=== PATIENT | female | born 1985 | race Caucasian/White ===

== ENCOUNTER 2024-03-03 10:11 | Outpatient (CLI) | payer OTHER, SELFPAY ==
--- NOTE | 2024-03-03 10:47 | ECG_ITS ---
SEE SCANNED COPY FOR CONFIRMED REPORT MTDD
== END 2024-03-03 10:12 | disposition home or self-care (01) ==
PROVIDERS: Visit Provider Obstetrics & Gynecology
DX: Z01.818 Encounter for other preprocedural examination (principal); N93.9 Abnormal uterine and vaginal bleeding, unspecified
CPT/HCPCS: 36415; 86850; 86900; 86901; 93005

== ENCOUNTER 2024-03-16 00:41 | Day surgery (SDC) | payer OTHER, SELFPAY ==
[2024-03-01 11:33] VITALS: BMI 36.1
--- NOTE | 2024-03-01 11:42 | PC.NURSE ---
Report to the Outpatient Waiting Room, entrance under the green pavilion located off [facility], at time _0600_ on date _[id number]_. Planned Procedure Time: _0730_. Time changes happen often and if your time is changed the preop area will call you the afternoon before. - You and your visitor will be asked to self-screen and do not enter if you have any COVID symptoms. - A mask is optional within the hospital at this time. Patients may have clear liquids (water, carbonated beverages, clear teas, apple juice) until 3 hours prior to surgery with a maximum of 20 ounces. - No food from midnight until time of surgery Take the following medications with a SIP of water the morning of surgery: ___None DO NOT STOP ANY OF YOUR OTHER PRESCRIPTION MEDICATIONS PRIOR TO SURGERY ?EXCEPT THE FOLLOWING Medications to discontinue per physician ____None Date to take last dose Please no make-up, nail south african, hairspray, perfume, deodorant, or body powder the day of surgery. No jewelry (including any body piercings) or valuables the day of surgery, leave them at home. Please take a shower or bath the night before, or the morning of, surgery with an antibacterial soap. Wear comfortable, loose fitting clothing. - Jewelry must be removed prior to entering the operating room. Rings and piercings that are not removed may be cut off. - The hospital will not accept responsibility for valuables. - Please leave all valuables, including medications, at home the day of surgery. If you are going home after surgery, a licensed public transit trolley driver must drive you home. - NO public transportation without another adult if you receive anesthesia. - We recommend that an adult stay with you for 24 hours following discharge. - We also recommend that you do not drive, make important decision, drink alcoholic beverages, or take any drugs that were not prescribed by your health care provider for at least 24 hours after your discharge time. Follow any additional instructions given to you from your surgeon. If you or anyone in your household have experienced Covid symptoms in the past week, please notify your surgeon or the nurse liaison at the phone number below for possible testing. Telephone instructions given to __Crystal__and asked if any additional questions and then verbalized understanding. Patient advised to call surgeon office or pre surgery nurse liaison [phone] if any additional questions.
--- NOTE | 2024-03-14 10:51 | PC.NURSE ---
Report to the Outpatient Waiting Room, entrance under the green pavilion located off [facility], at time _0930_ on date _[id number]_. Planned Procedure Time: _1130_. Time changes happen often and if your time is changed the preop area will call you the afternoon before. - You and your visitor will be asked to self-screen and do not enter if you have any COVID symptoms. - A mask is optional within the hospital at this time. Patients may have clear liquids (water, carbonated beverages, clear teas, apple juice) until 3 hours prior to surgery with a maximum of 20 ounces. - No food from midnight until time of surgery Take the following medications with a SIP of water the morning of surgery: None DO NOT STOP ANY OF YOUR OTHER PRESCRIPTION MEDICATIONS PRIOR TO SURGERY ?EXCEPT THE FOLLOWING Medications to discontinue per physician None Date to take last dose Please no make-up, nail nepali, hairspray, perfume, deodorant, or body powder the day of surgery. No jewelry (including any body piercings) or valuables the day of surgery, leave them at home. Please take a shower or bath the night before, or the morning of, surgery with an antibacterial soap. Wear comfortable, loose fitting clothing. - Jewelry must be removed prior to entering the operating room. Rings and piercings that are not removed may be cut off. - The hospital will not accept responsibility for valuables. - Please leave all valuables, including medications, at home the day of surgery. If you are going home after surgery, a licensed hearse driver must drive you home. - NO public transportation without another adult if you receive anesthesia. - We recommend that an adult stay with you for 24 hours following discharge. - We also recommend that you do not drive, make important decision, drink alcoholic beverages, or take any drugs that were not prescribed by your health care provider for at least 24 hours after your discharge time. Follow any additional instructions given to you from your surgeon. If you or anyone in your household have experienced Covid symptoms in the past week, please notify your surgeon or the nurse liaison at the phone number below for possible testing. Telephone instructions given to __Crystal__and asked if any additional questions and then verbalized understanding. Patient advised to call surgeon office or pre surgery nurse liaison [phone] if any additional questions.
[2024-03-16] VITALS (11 sets, daily range): BP systolic 105–135; BP diastolic 60–92; PULSE 64–85; RESP 10–18; TEMP 35.9–36.7; O2SAT 95–100
--- NOTE | 2024-03-16 09:54 | P.PNAN_ITS ---
Anes - Initial Pre Proc Eval Procedure: Operation Date: 03/16/24 11:30 Proposed Procedures p Total Laparoscopic Hysterectomy with Bilateral Salpingectomy - Nitesh Al MD Date/Time: 03/16/24 09:54 Surgeon: Nitesh Al MD Pre Op Diagnosis: Abnormal Uterine Bleeding Patient Data Age: 38 Gender: F Height: 1.7 m Weight: 104.5 kg Allergies Allergy/AdvReac Type Severity Reaction Status Date / Time No Known Allergies Allergy Verified 03/13/24 11:26 Home Medications Medication Instructions Recorded Confirmed Type atorvastatin 20 mg tablet 20 mg PO DAILY 03/01/24 03/13/24 History estradiol 1 mg tablet 1 mg PO DAILY 03/01/24 03/13/24 History progesterone micronized 100 mg 100 mg PO DAILY 03/01/24 03/13/24 History capsule Patient hx anesthesia problems: none Family hx anesthesia problems: none Results Review: All pre-operative results and documents have been reviewed as part of the pre- operative evaluation. PMFSH Social History Social History Smoking status: Never smoker Living arrangements: with family Spiritual care concerns: No Anes - Eval Final PreProcedure Day of Procedure 03/16/24 09:54 Patient weight: obese Heart: regular rate and rhythm Lungs: clear to auscultation Airway: Mallampati scale class II Neurological: alert and oriented Last oral intake: >/= 8 hours ASA classification: III Emergent: no Anesthetic plan: proceed Anesthesia type and monitoring: general ETT and standard monitoring Results Review: All pre-operative results and documents have been reviewed as part of the pre- operative evaluation. Informed Consent: The patient's anesthetic plan and its attendant risks and benefits were discussed with the patient/family/POA. Questions were solicited and answers provided to the satisfaction of the patient/family/POA.
--- NOTE | 2024-03-16 09:58 | PM.IMHP ---
H&P: HPI History of Present Illness Date/Time: 03/16/24 09:58 Chief Complaint: abnormal uterine bleeding Narrative: Patient is a 38 year old female who presents for total laparoscopic hysterectomy, bilateral salpingectomy, and cystoscopy, indicated for abnormal uterine bleeding. She has tried multiple medical management options in the past, and then underwent endometrial ablation in 2018. She was amenorrheic until late 2022 when she began to have heavy bleeding again. Pelvic ultrasound and EMB in the office demonstrated regrowth of normal endometrium. Discussed r/b/a of expectant vs medical vs surgical management of bleeding. Patient desires definitive surgical management with hysterectomy. Hx of lap RSO previously. Review of Systems Review of Systems: All systems reviewed & are unremarkable except as noted in HPI and below PMFSH Social History Social History Smoking status: Never smoker Living arrangements: with family Spiritual care concerns: No Meds Home Medications and Allergies Home Medications Medication Instructions Recorded Confirmed Type atorvastatin 20 mg tablet 20 mg PO DAILY 03/01/24 03/16/24 History estradiol 1 mg tablet 1 mg PO DAILY 03/01/24 03/16/24 History progesterone micronized 100 mg 100 mg PO DAILY 03/01/24 03/16/24 History capsule Allergies Allergy/AdvReac Type Severity Reaction Status Date / Time No Known Allergies Allergy Verified 03/16/24 11:20 Exam Const: General: comfortable and no acute distress Eyes: General: appearance normal, both eyes and all related structures Resp: Effort & Inspection: normal respiratory effort Cardio: Rate: regular rate Rhythm: regular rhythm GI: Inspection: non-distended : General: Yes bladder normal to palpation Skin: General skin exam: normal color Extrem: General: normal to inspection Psych: Mental Status: mental status grossly normal Assessment and Plan Assessment and plan (1) Abnormal uterine bleeding (AUB): Code(s): N93.9 - Abnormal uterine and vaginal bleeding, unspecified Status: Acute Assessment and Plan: - hx of heavy periods - amenorrheic following endometrial ablation in 2018, however began bleeding again in 2022 - pelvic US and EMB demonstrate normal endometrium - discussed expectant vs medical vs surgical management and r/b of each; patient desires definitive surgical management with hysterectomy - Discussed total laparoscopic hysterectomy with left salpingectomy and cystoscopy; RSO previously performed. Discussed left ovarian conservation as long as normal appearing - Patient voices understanding and would like to proceed as scheduled
[2024-03-16] MEDS: LACTATED RINGERS 1,000 ML 30 ML IV CONT ×2 (10:00→14:52)
[2024-03-16] MEDS: ACETAMINOPHEN 500 MG TABLET 1000 MG PO (11:35)
[2024-03-16] MEDS: KETOROLAC 15 MG/ML VIAL (*BKC) IV PUSH (11:35)
--- NOTE | 2024-03-16 12:00 | WPDHPUPDATE1 ---
History and Physical Update Update Date/Time: 03/16/24 12:00 History and Physical has been reviewed, including an updated exam of the patient. There are NO changes in the patient's condition. Risks, benefits, and alternatives have been discussed and questions answered. Patient agrees to proceed with procedure.
[2024-03-16] MEDS: ceFAZolin 2 GM/D5W 50 ML 2 GM/50 ML BAG IVPB (12:16)
[2024-03-16] MEDS: BUPIVACAINE/EPINEPHRINE 0.5% 10 ML VIAL 20 ML INFILTRATE (13:03)
[2024-03-16] MEDS: fentaNYL CITRATE INJ (*CRX) 100 MCG/2 ML VIAL 25 MCG IV PUSH ×4 (15:44→16:08)
--- NOTE | 2024-03-16 16:35 | PC.NURSE ---
This patient, Zandra Freitas, was received from PACU via bed on 03/16/24 at 1635. Patient/family oriented to unit policies and routines.
[2024-03-16] MEDS: ONDANSETRON INJ 4 MG/2 ML VIAL IV PUSH (17:28)
[2024-03-16] MEDS: IBUPROFEN 600 MG TABLET PO (18:25)
[2024-03-16] MEDS: ACETAMINOPHEN 325 MG TABLET 650 MG PO ×2 (18:25→19:03)
[2024-03-16] MEDS: HYDROcodone/acetaminophen (*CRX) 7.5-325 MG TABLET 1 TAB PO (19:03)
[2024-03-16] MEDS: LACTATED RINGERS 1,000 ML 125 ML IV CONT (19:04)
[2024-03-16] MEDS: HYDROmorphone HCL INJ (*CRX) 1 MG/ML SYR IV PUSH ×2 (19:38→21:55)
--- NOTE | 2024-03-16 21:03 | W.PM.PROC2 ---
Procedure Note - Detailed Date of Procedure 03/16/24 Pre-op Diagnosis Abnormal Uterine Bleeding Post-op Diagnosis Same Procedure Performed Total laparoscopic hysterectomy with cystoscopy Surgeon Nitesh Al MD Anesthesia General and Local Indications abnormal uterine bleeding s/p endometrial ablation Findings Surgically absent right ovary and bilateral fallopian tubes. Normal appearing left ovary. Small and large bowel adhered from the posterior cul de sac to the fundus. Description of Procedure The patient was taken to the operating room with IV fluids infusing and placed in dorsal supine position. She was given general anesthesia by the anesthesiologist without difficulty. She was then repositioned in the dorsal lithotomy position and prepped and draped in the usual sterile manner. A Rivera catheter was placed in the patient's bladder. The Juli uterine manipulator was place in the cervix. Legs were returned to physiologic position. An oral gastric tube was placed in the stomach to suction any contents. A small incision was made in the abdomen in the mid clavicular line below the left costal margin. A 5mm trocar was placed into Broussard's point under direct vision. Intraabdominal placement was confirmed with an opening pressure of 6mm. After adequate visualization two 5 mm ports were placed lateral to the inferior epigastric vessels on the left. The [place] Ligasure was used throughout the case. On evaluation of the pelvis, a large amount of dense bowel adhesions were noted extending from the fundus to the posterior cul de sac that significantly distorted the anatomy. A mixture of both Ligasure and cold scissors were used to carefully separate the the bowel from the posterior aspect of the uterus. 75 minutes were spent on adhesiolysis in order to visualize the cervical cup of the manipulator. A rectal exam was performed to ensure no entry into the rectum during adhesioloysis, and it was intact at the end of adhesiolysis. Once the anatomy was normalized as much as possible, the hysterectomy was begun by coagulating and cutting the uteroovarian pedicle on the left and the round ligaments. The bladder flap was created the bladder from the lower uterine segment.The uterine vessels were skeletonized bilaterally,coagulated and then cut. The Ligasure L hook was used to create the colpotomy anteriorly and continued around the circumference of the cervix. The uterus was delivered vaginally. The pedicles were noted to be hemostatic. After adequate hemostasis the vaginal cuff was closed with V-loc suture in a running fashion. Surgicel powder was placed under the sigmoid and along the vaginal cuff. Cystoscopy was performed. Both ureters showed normal flow and there was no damage to the bladder. The abdominal cavity was lavaged with normal saline; there was no active bleeding. Instruments were removed under direct vision and as much CO2 was removed as possible. The abdomen was washed and the incision sites were closed with 4-0 Biosyn and injected with Marcaine. The incisions were covered with skin glue. Patient tolerated the procedure well. Sponge, lap, needle, and instrument counts were correct. Patient was awakened and taken to the PACU in stable condition by the anesthesiologist. A modifier 22 is to be added due to the difficulty of adhesiolysis with was unusually complex and time consuming for a standard hysterectomy. Estimated Blood Loss 100 Pathology Yes Complications No immediate complications Condition Stable Disposition Floor
[2024-03-17] MEDS: LACTATED RINGERS 1,000 ML 125 ML IV CONT ×2 (01:00→09:30)
[2024-03-17] MEDS: HYDROmorphone HCL INJ (*CRX) 1 MG/ML SYR IV PUSH (02:21)
[2024-03-17 05:00] VITALS: BP 99/54; PULSE 81; RESP 16; TEMP 36.4; O2SAT 96
[2024-03-17 05:40] LABS: Hematocrit 29.4 % (37.0-47.0); Hemoglobin 9.2 g/dL (12.0-15.0); Mean Corpuscular HGB Conc 31.3 g/dl (32-36); Mean Corpuscular Hemoglobin 32.3 pg (26-34); Mean Corpuscular Volume 103.2 fl (80-100); Mean Platelet Volume 10.2 fl (7.4-10.4); Platelet Count Result 217 k/mm3 (150-375); Red Blood Count 2.85 M/mm3 (4.2-5.4); Red Cell Distribution Width 12.5 % (11.5-14.5); White Blood Count 9.9 K/mm3 (4.5-10.0)
[2024-03-17 05:46] LABS: Anion Gap 3 mmol/L (4-12); Blood Urea Nitrogen 14 mg/dL (7-17); Calcium 7.9 mg/dL (8.4-10.2); Carbon Dioxide 25 mmol/L (22-30); Chloride 105 mmol/L (98-107); Estimated CRCL calculation 103 ml/min; Estimated Glomerular Filt Rate > 60; Glucose 123 mg/dL (65-110); Potassium 4.8 mmol/L (3.4-5.0); Sodium 133 mmol/L (137-145)
[2024-03-17 09:05] VITALS: BP 98/58; PULSE 93; RESP 18; TEMP 36.2; O2SAT 98
[2024-03-17] MEDS: polyethylene glycoL 3350 17 GM POWD.PACK PO (09:30)
[2024-03-17] MEDS: estradioL 1 MG TABLET PO (09:30)
[2024-03-17] MEDS: ACETAMINOPHEN 325 MG TABLET 650 MG PO (09:30)
[2024-03-17] MEDS: ENOXAPARIN 40 MG/0.4 ML SYRINGE SUB-Q (09:31)
[2024-03-17] MEDS: IBUPROFEN 600 MG TABLET PO (10:45)
[2024-03-17] MEDS: SIMETHICONE 80 MG TAB.CHEW PO (10:45)
--- NOTE | 2024-03-17 13:03 | PM.GYNPNOP ---
MOTOR VEHICLE CLERK - A/P Postoperative Procedures: Procedures Operation Date: 03/16/24 11:30 Actual Procedure Side Surgeon p Total Laparoscopic Hysterectomy with Bilateral Salpingectomy Not Applicable Nitesh Al MD s Cystoscopy for MOTOR VEHICLE CLERK Procedure Not Applicable Nitesh Al MD Time Spent With Patient Time: Total time spent is greater than 50% in coordination of care (as documented) at patient's floor/unit and/or counseling patient: Time with patient: 15 - 25 minutes MOTOR VEHICLE CLERK- PN:Subj Post-Op Subjective Date/time seen: 03/17/24 13:03 Interval history: POD#1 s/p TLH Pain improving, lots of gas pain Tolerating clear liquids catheter in place, to be removed this morning discussed difficulty of case with bowel adhesions, easy diet for the first few days Review of Systems Review of Systems: All systems reviewed & are unremarkable except as noted in HPI and below Exam Const: General: comfortable and no acute distress Eyes: General: appearance normal, both eyes and all related structures Resp: Effort & Inspection: normal respiratory effort Cardio: Rate: regular rate Rhythm: regular rhythm GI: Inspection: non-distended Other: incisions c/d/i with glue, appropriately tender Skin: General skin exam: normal color Extrem: General: normal to inspection Psych: Mental Status: mental status grossly normal MOTOR VEHICLE CLERK - PN: Obj Data Vital Signs Vital Signs: Vital Signs - 24 hr 03/16/24 14:52 03/16/24 15:20 03/16/24 15:05 Temperature 97.7 F Pulse Rate 65 75 69 Respiratory Rate 10 L 18 10 L Blood Pressure 105/60 119/89 113/68 Pulse Oximetry 100 100 100 Oxygen Delivery Simple Face Mask Simple Face Mask Simple Face Mask Oxygen Flow Rate 6 6 6 03/16/24 15:35 03/16/24 16:20 03/16/24 16:29 Temperature Pulse Rate 66 67 69 Respiratory Rate 16 12 12 Blood Pressure 130/83 116/78 117/77 Pulse Oximetry 100 96 97 Oxygen Delivery Simple Face Mask Room Air Room Air Oxygen Flow Rate 6 03/16/24 15:50 03/16/24 16:05 03/16/24 16:40 Temperature 97.7 F Pulse Rate 64 71 85 Respiratory Rate 14 14 18 Blood Pressure 134/85 114/80 109/71 Pulse Oximetry 100 99 95 Oxygen Delivery Room Air Room Air Oxygen Flow Rate 03/16/24 19:20 03/16/24 19:20 03/16/24 19:20 Temperature 96.7 F L 96.7 F L Pulse Rate 77 77 77 Respiratory Rate 14 14 14 Blood Pressure 112/69 112/69 Pulse Oximetry 100 100 100 Oxygen Delivery Room Air Oxygen Flow Rate 03/17/24 05:00 03/17/24 05:00 03/17/24 09:05 Temperature 97.5 F L 97.1 F L Pulse Rate 81 81 93 Respiratory Rate 16 16 18 Blood Pressure 99/54 L 98/58 L Pulse Oximetry 96 96 98 Oxygen Delivery Room Air Oxygen Flow Rate Intake/Output Intake/Output: Intake & Output 03/14/24 03/15/24 03/16/24 03/17/24 23:59 23:59 23:59 23:59 Intake Total 650 3300 Output Total 925 925 Balance -275 2375 Meds/Results Medications: Active Medications Generic Name Dose Route Start Last Admin Trade Name Freq PRN Reason Stop Dose Admin Acetaminophen 650 mg 03/16/24 18:00 03/17/24 09:30 Acetaminophen 325 Mg Tablet PO 650 mg Q6HR CHERYLE Administration Hydrocodone Bitart/Acetaminophen 1 tab 03/16/24 15:23 03/16/24 19:03 Hydrocodone/Acetaminophen (*Crx) 7.5-325 Mg Tablet PO 1 tab Q4H PRN Administration Pain Rated 7-10 Hydrocodone Bitart/Acetaminophen 1 tab 03/16/24 15:23 Hydrocodone/Acetaminophen (*Crx) 5-325 Mg Tablet PO Q4H PRN Pain Rated 4-6 Atorvastatin Calcium 20 mg 03/17/24 09:00 03/17/24 11:36 Atorvastatin 20 Mg Tablet PO Not Given DAILY CHERYLE Diphenhydramine HCl 25 mg 03/16/24 15:23 Diphenhydramine Hcl Inj 50 Mg/Ml Vial IV PUSH Q6H PRN Itching Enoxaparin Sodium 40 mg 03/17/24 09:00 03/17/24 09:31 Enoxaparin 40 Mg/0.4 Ml Syringe SUB-Q 40 mg DAILY CHERYLE Administration Estradiol 1 mg 03/17/24 09:00 03/17/24 09:30 Estradiol 1 Mg Tablet PO 1 mg DAILY CHERYLE Administrati
== END 2024-03-17 14:10 | disposition home or self-care (01) ==
LOC: ANHSURGERY 09:23 → ANHOB2 17:15
PROVIDERS: Visit Provider Obstetrics & Gynecology
PROC: 0UT9FZZ Resection of Uterus, Via Natural or Artificial Opening With Percutaneous Endoscopic Assistance (ICD-10-PCS; CPT 58571; principal; 2024-03-16 11:30)
PROC: 0TJB8ZZ Inspection of Bladder, Via Natural or Artificial Opening Endoscopic (ICD-10-PCS; CPT 52000; 2024-03-16 11:30)
DX: N93.9 Abnormal uterine and vaginal bleeding, unspecified (principal); N73.6 Female pelvic peritoneal adhesions (postinfective); N85.8 Other specified noninflammatory disorders of uterus; E66.9 Obesity, unspecified; Z68.36 Body mass index [BMI] 36.0-36.9, adult
CPT/HCPCS: 58571; 36415; 80048; 85027; 86850; 86900; 86901; 88307; 93005; 99199; A9270; J0330; J0690; J1100; J1170; J1650; J1885; J2250; J2405; J2704; J3010; J7030; J7120; Q9968